=== PATIENT | female | born 1995 | race Caucasian/White ===

== ENCOUNTER → 2019-10-20 08:40 | Outpatient (BNVA) | payer OTHER, SELFPAY | PROVIDERS: Family Provider Internal Medicine; PCP Internal Medicine; Referring Provider Obstetrics & Gynecology; Visit Provider Obstetrics & Gynecology | DX: N92.6 Irregular menstruation, unspecified (principal) | CPT/HCPCS: 84702 ==

== ENCOUNTER → 2020-01-04 15:17 | Outpatient (BNVA) | payer OTHER, SELFPAY | PROVIDERS: Family Provider Internal Medicine; PCP Internal Medicine; Visit Provider Obstetrics & Gynecology | DX: N83.291 Other ovarian cyst, right side (principal); R10.2 Pelvic and perineal pain | CPT/HCPCS: 76830 ==

== ENCOUNTER → 2020-04-06 08:10 | Outpatient (BNVA) | payer OTHER, SELFPAY | PROVIDERS: Family Provider Internal Medicine; PCP Internal Medicine; Visit Provider Obstetrics & Gynecology | DX: R10.2 Pelvic and perineal pain (principal) | CPT/HCPCS: 76830 ==

== ENCOUNTER → 2020-04-12 08:31 | Outpatient (BNVA) | payer OTHER, SELFPAY | PROVIDERS: Family Provider Internal Medicine; PCP Internal Medicine; Visit Provider Obstetrics & Gynecology | DX: Z12.4 Encounter for screening for malignant neoplasm of cervix (principal) | CPT/HCPCS: 88175 ==

== ENCOUNTER → 2020-04-28 09:51 | Outpatient (BNVA) | payer OTHER, SELFPAY | PROVIDERS: Family Provider Internal Medicine; PCP Internal Medicine; Referring Provider Obstetrics & Gynecology; Visit Provider Internal Medicine | DX: Z11.59 Encounter for screening for other viral diseases (principal) | CPT/HCPCS: 87635 ==

== ENCOUNTER 2020-05-04 05:52 | Day surgery (SDC) | payer OTHER, SELFPAY ==
[2020-05-03 09:58] VITALS: BMI 34.4
[2020-05-03 10:20] LABS: OR HCG Qualitative Urine Negative (Negative)
[2020-05-03 10:29] LABS: Basophils % 0.4 %; Eosinophils # 0.1 10^3/uL (0.0-0.8); Eosinophils % 1.3 %; Hematocrit 39.5 % (37.0-47.0); Hemoglobin 12.6 g/dL (11.5-15.3); Lymphocytes # 2.3 10^3/uL (0.8-4.8); Lymphocytes % 27.7 %; Mean Corpuscular HGB Conc 31.9 g/dL (30.0-36.0); Mean Platelet Volume 11.3 fL (7.4-10.4); Monocytes # 0.6 10^3/uL (0.2-0.9); Monocytes % 7.7 %; Neutrophils # 5.14 10^3/uL (1.8-7.7); Neutrophils % 62.8 %; Nucleated Red Blood Cells % 0 %; Platelet Count 242 10^3/cmm (130-400); Red Blood Count 4.34 10^6/uL (4.1-5.3); Red Cell Distribution Width 12.5 % (12.1-15.1); White Blood Count 8.2 10^3/uL (4.0-10.0)
--- NOTE | 2020-05-03 10:44 | P.ANESASSM_ITS ---
Pre-Anesthetic Assessment Pre-Anesthetic Assessment: Height/Weight: Height 1.7 m Weight 99.79 kg Preop Diagnosis: Abdominal pain-likely endometriosis Proposed Procedure: Operation Date: 05/04/20 07:00 Proposed Procedures p Laparoscopic Ovarian Cystectomy poss oophorectomy [id number] N83.201(Right) - Fabby Medina MD s Lysis Of Adhesions(Not Applicable) - Fabby Medina MD Familial anesthetic complications: None Social: Social History: No alcohol and No tobacco Exam: Pre-Anes Outpt Exam: alert, oriented x 3, clear to auscultation b ilaterally and regular rate & rhythm Airway: Cervical ROM: WNL MP: 3 Dentition: Full Pulmonary: Pulmonary: None reported Neuropsych: Neuropsych: None reported Anesthetic Plan: ASA status: 1 Anesthesia: General Risk of > 500 ml blood loss (7ml/kg in children): No PFSH Anesthesia PFSH: Medical History (Updated 04/27/20 @ 09:08 by Fabby Medina MD) Anxiety Diagnosed in 2019 and is taking Zoloft to help with the symptoms. She thinks that this may be related to coronavirus more than anything else. She has since stopped the medicine and feels fine without it. She denies any depressive symptoms No pertinent past medical history Denies: Denies diabetes, asthma, hypertension, seizures, DVT/PE PCP: JODY Fung Surgical History No history of previous surgery Family History Mother Diabetes Hypertension Grandmother Ovarian cancer Maternal; diagnosed at age 90--breast cancer was the primary cancer Breast cancer Maternal; diagnosed at age 90 Denies family history of Colon cancer Heart disease Hyperlipidemia Uterine cancer Thyroid condition Stroke Social History Smoking and tobacco status: never smoked Alcohol intake: unknown Data Anesthesia CBC & Chem 7: 05/03/20 10:20 Other Labs: Laboratory Results - last 48 hr 05/03/20 05/03/20 10:19 10:20 WBC 8.2 RBC 4.34 Hgb 12.6 Hct 39.5 MCV 91.0 MCH 29.0 MCHC 31.9 RDW 12.5 Plt Count 242 MPV 11.3 H Neut % (Auto) 62.8 Lymph % (Auto) 27.7 [place] % (Auto) 7.7 Eos % (Auto) 1.3 Baso % (Auto) 0.4 Neut # (Auto) 5.14 Lymph # (Auto) 2.3 [place] # (Auto) 0.6 Eos # (Auto) 0.1 Baso # (Auto) 0.0 Nucleated RBC % (auto) 0 Nucleated RBCs # 0.0 Urine HCG, Qual Negative Cardiac Studies: No Data to Display
[2020-05-04] VITALS (13 sets, daily range): BP systolic 115–143; BP diastolic 68–90; PULSE 74–86; RESP 13–26; TEMP 36.4–37.4; O2SAT 94–100
[2020-05-04 06:14] LABS: OR HCG Qualitative Urine Negative (Negative)
[2020-05-04] MEDS: sodium chloride 0.9% 1,000 ML 30 ML IV (06:26)
[2020-05-04] MEDS: sodium chloride 0.9% 500 ML IV (06:26)
--- NOTE | 2020-05-04 06:53 | P.HPUD_ITS ---
Surgery/Procedure H&P Update DATE OF PROCEDURE: May 04, 2020 DATE H&P PERFORMED: 04/12/20 H&P UPDATE INFORMATION: I have reviewed H&P completed within last 30 days, I have examined patient prior to procedure, No changes to prior documentation and H&P is in [facility] [place] EMR on date indicated PREOP DIAGNOSIS: Abdominal pain-likely endometriosis PLANNED PROCEDURE: Operation Date: 05/04/20 07:00 Proposed Procedures p Laparoscopic Ovarian Cystectomy poss oophorectomy [id number] N83.201(Right) - Fabby Medina MD s Lysis Of Adhesions(Not Applicable) - Fabby Medina MD
--- NOTE | 2020-05-04 07:09 | P.ANESUD_ITS ---
Pre-Anesthetic Update Pre-Anesthetic Assessment: Date of Surgery/Procedure: 05/04/20 Preop Blanka gnosis: Abdominal pain-likely endometriosis Proposed Procedure: Operation Date: 05/04/20 07:00 Proposed Procedures p Laparoscopic Ovarian Cystectomy poss oophorectomy [id number] N83.201(Right) - Fabby Medina MD s Lysis Of Adhesions(Not Applicable) - Fabby Medina MD Any changes to Pre-Anesthetic Assessment?: No Last Intake: Intake Last Liquid Date 05/03/20 Last Liquid Time 18:30 Last Solid Date 05/03/20 Last Solid Time 18:00 Labs Last 48hrs: Laboratory Results - last 48 hr 05/03/20 05/03/20 05/03/20 10:19 10:20 10:20 WBC 8.2 RBC 4.34 Hgb 12.6 Hct 39.5 MCV 91.0 MCH 29.0 MCHC 31.9 RDW 12.5 Plt Count 242 MPV 11.3 H Neut % (Auto) 62.8 Lymph % (Auto) 27.7 [place] % (Auto) 7.7 Eos % (Auto) 1.3 Baso % (Auto) 0.4 Neut # (Auto) 5.14 Lymph # (Auto) 2.3 [place] # (Auto) 0.6 Eos # (Auto) 0.1 Baso # (Auto) 0.0 Nucleated RBC % (a uto) 0 Nucleated RBCs # 0.0 Urine HCG, Qual Negative Blood Type O Positive Rho(D) Type Positive Antibody Screen Negative 05/04/20 05:59 WBC RBC Hgb Hct MCV MCH MCHC RDW Plt Count MPV Neut % (Auto) Lymph % (Auto) [place] % (Auto) Eos % (Auto) Baso % (Auto) Neut # (Auto) Lymph # (Auto) [place] # (Auto) Eos # (Auto) Baso # (Auto) Nucleated RBC % (a uto) Nucleated RBCs # Urine HCG, Qual Negative Blood Type Rho(D) Type Antibody Screen Vitals: Temperature 98.6 F 05/04/20 06:04 Temperature Source Temporal Artery S can 05/04/20 06:04 Pulse Rate 80 05/04/20 06:04 Respiratory Rate 18 05/04/20 06:04 Blood Pressure 142/78 05/04/20 06:04 Blood Pressure Monica n 99 05/04/20 06:04 Pulse Oximetry 98 05/04/20 06:04 Oxygen Delivery Me thod 05/04/20 06:04 Exam: Pre-Anes Outpt Exam: alert, oriented x 3, clear to auscultation bilaterally and regular rate & rhythm Cardiac Studies: No Data to Display
[2020-05-04] MEDS: silver nitrate applicator 1 EACH TOPICAL (08:49)
--- NOTE | 2020-05-04 09:13 | SUR.PHASEI ---
0909 PATIENT TO PACU FROM OR. RR EVEN AND UNLABORED. SPO2 97% ON SIMPLE MASK AT 8L. 3 INCISIONS TO ABDOMEN, CDI.
--- NOTE | 2020-05-04 09:18 | SUR.PHASEI ---
0918 ORAL AIRWAY REMOVED AT THIS TIME. SPO2 100% ON SIMPLE MASK AT 8L.
--- NOTE | 2020-05-04 09:19 | PM.OP ---
Operative Report Date of procedure: May 04, 2020 OPERATIVE REPORT Date of surgery: 05/04/2020 Date of dictation: 05/04/2020 Preoperative diagnosis: Pelvic pain, right ovarian cyst, possible endometriosis Postoperative diagnosis/findings: 6-week size retroverted uterus, mobile, nontender, right adnexal mass, minimal prolapse. On laparoscopy, no injury at site of entry, normal appendix, endometriosis noted in the cul-de-sac with multiple lesions all along the uterosacral ligaments and posterior wall of the uterus. Left ovary appeared normal with no endometriosis noted in the left ovarian fossa. Right ovary was enlarged and contained an endometrioma about 5 cm which ruptured at time of manipulation, endometriosis noted in the right ovarian fossa. Biopsies done, ablation of endometriosis performed. Procedure done: Laparoscopic right ovarian cystectomy , peritoneal biopsy, fulguration of endometriosis, chromotubation Specimens removed/disosition of specimens: Peritoneal biopsy, portion of the right ovary and cyst wall, Surgeon: Dr. Fabby Avelar Hydrogeology Professor: Destiny Denise Anesthesia: General endotracheal tube anesthesia Estimated blood loss: Less than 25 ml Intravenous fluids: 900 mL of LR Urine output: 50 mL of clear urine at the end of procedure. Medications: As per anesthesia records Complications:none, patient was extubated and taken to the recovery room in a stable condition. PROCEDURE: After consents were obtained, she was taken to the operating room where she was placed under general endotracheal tube anesthesia without any difficulty. She was placed supine on the table in lithotomy position. Her legs were placed in stirrups and care was taken to avoid pressure points. Exam under anesthesia 8 weeks size retroverted uterus, right adnexal fullness and minimal prolapse. ZUMI uterine manipulator was placed without any difficulty after dilating the cervix and Wright catheter was also placed. All instruments removed in the vagina and the legs were lowered. Attention was turned towards the abdomen where half percent Marcaine with epinephrine was injected in to her umbilicus. A 10 mm skin incision was made and a 10 mm port was placed through the umbilicus using an open type technique. Once intra-abdominal entry was confirmed no adhesions were noted around the umbilicus and Matias trocar was stitched to the fascia. Gas was turned on and intra-abdominal opening pressure was 2. The abdomen is insufflated until the pressure was 13. Survey of the abdomen revealed no trauma at site of entry, and findings noted as above A 5 mm trocar was placed into the right and left lower quadrant under direct visualization after injecting Marcaine. Attention was turned towards the pelvis and findings noted as above. It was hard to see the right ovary as it was adherent into the ovarian fossa on the right pelvic sidewall and while trying to free up those adhesions the cyst ruptured releasing chocolate-like material consistent with an endometrioma. This was suctioned and irrigated well. The now ruptured ovarian cyst made dissection easier and using scissors the ovary was dissected off the sidewall without any difficulty. We then proceeded with the cystectomy and the cyst wall and abnormal part of the ovary was excised using the Vuoyant cautery device. Care was taken to remove all cyst wall and good hemostasis was achieved. Hemostasis was achieved with cautery. This excised portion of the ovary and cyst was removed and sent to pathology. Attention was then turned to the cul-de-sac where a biopsy was performed excising an area of endometriosis. Most of the endometriosis was noted on the uterosacral ligaments bilaterally with scarring and small cigarette burn areas. Jr-Masters windows were noted on the left side. Once a biopsy was done and sent to pathology separately the areas of visualized endometriosis were cauterized. No endometriosis were noted anteriorly or in the left ovarian fossa. Care was taken in cauterizing areas of endometriosis in the right ovarian fossa and minimal to no cautery was done here. Good hemostasis was noted. At this point chromotubation was done. Indigo carmine diluted with saline was placed in a 60 cc syringe and injected through the ZUMI uterine manipulator. Immediate bilateral spill of blue dye was noted from both ovaries. No adhesions or blockages identified. Once this was done Surgicel was placed over the ovary. Good hemostasis was noted at area of surgery with lowering pressure. All instruments were removed from the abdomen and the abdomen was desufflated. Trochars were removed with the blunt probe in place. The fascia on the umbilicus was closed with 0 Vicryl on a UR needle and good approximation was obtained. The skin incision on all 3 ports was closed with 4-0 Monocryl in a subcuticular fashion. Good reapproximation and hemostasis was noted. The incisions were dressed with Steri-Strips Telfa and Tegaderm. Wright catheter and ZUMI (manipulator was removed. Hemostasis was achieved of the cervix using silver nitrate. The patient was extubated and taken to recovery room in stable condition. FOLLOW UP: Follow-up in 2 weeks and 6 weeks with surgeon MEDICATION ON DISCHARGE: Colace 100 mg by mouth every 12 hours when necessary constipation, 30 tablets, no refills Ibuprofen 800 mg by mouth every 8 hours when necessary pain, 60 tablets, no refills. [place] 5/325 mg 1 tablet by mouth every 6 hours when necessary pain,30 tablets, no refills Continue other home medication DISPOSITION: Home in a stable condition Pre-op Diagnosis: Abdominal pain-likely endometriosis
[2020-05-04] MEDS: ondansetron 2 mg/ML SDV 2 mL 4 MG IVP ×2 (09:33→09:58)
[2020-05-04] MEDS: fentaNYL 50 mcg/mL INJ 2mL IVP (09:36)
--- NOTE | 2020-05-04 09:57 | SUR.PHASEI ---
0952 PATIENT TO OPS. PAIN 4/10, NAUSEA IMPROVED. 3 INCISIONS TO ABDOMEN, CDI. PATIENT C/O NAUSEA WHEN GETTING TO OPS. ZOFRAN GIVEN AND SCOPOLAMINE PATCH APPLIED.
[2020-05-04] MEDS: scopolamine 1.5 Patch 1 PATCH TRANSDERMA (09:59)
== END 2020-05-04 10:38 | disposition home or self-care (01) ==
PROVIDERS: Anesthesiology; Family Provider Internal Medicine; PCP Internal Medicine; Visit Provider Obstetrics & Gynecology
PROC: (CPT 58662; principal; 2020-05-04 07:00)
DX: N83.201 Unspecified ovarian cyst, right side (principal); N80.0 Endometriosis of uterus
CPT/HCPCS: 58100; 58350; 58662; 12345; 36415; 81025; 84703; 85025; 86850; 86900; 88305; J1100; J2405; J2704; J2710; J3010; J3490; J7030; J7040

== ENCOUNTER → 2020-08-30 00:01 | Outpatient (BNVA) | payer OTHER, SELFPAY | PROVIDERS: Family Provider Internal Medicine; PCP Internal Medicine; Visit Provider Obstetrics & Gynecology | DX: N97.9 Female infertility, unspecified (principal) | CPT/HCPCS: 83036; 83520; 84144; 84443 ==

== ENCOUNTER → 2020-09-28 09:05 | Outpatient (BNVA) | payer OTHER, SELFPAY | PROVIDERS: Family Provider Internal Medicine; PCP Internal Medicine; Visit Provider Obstetrics & Gynecology | DX: N80.9 Endometriosis, unspecified (principal) | CPT/HCPCS: 84144 ==

== ENCOUNTER → 2020-10-30 08:17 | Outpatient (BNVA) | payer OTHER, SELFPAY | PROVIDERS: Family Provider Internal Medicine; PCP Internal Medicine; Visit Provider Obstetrics & Gynecology | DX: N97.0 Female infertility associated with anovulation (principal) | CPT/HCPCS: 84144 ==

== ENCOUNTER → 2020-11-13 08:53 | Outpatient (BNVA) | payer OTHER, SELFPAY | PROVIDERS: Family Provider Internal Medicine; PCP Internal Medicine; Visit Provider Obstetrics & Gynecology | DX: Z32.01 Encounter for pregnancy test, result positive (principal) | CPT/HCPCS: 84702 ==

== ENCOUNTER → 2020-11-20 08:34 | Outpatient (BNVA) | payer OTHER, SELFPAY | PROVIDERS: Family Provider Internal Medicine; PCP Internal Medicine; Visit Provider Obstetrics & Gynecology | DX: Z34.90 Encounter for supervision of normal pregnancy, unspecified, unspecified trimester (principal) | CPT/HCPCS: 84702 ==

== ENCOUNTER → 2020-12-26 12:44 | Outpatient (BNVA) | payer OTHER, SELFPAY | PROVIDERS: Family Provider Internal Medicine; PCP Internal Medicine; Visit Provider Obstetrics & Gynecology | DX: Z34.81 Encounter for supervision of other normal pregnancy, first trimester (principal) | CPT/HCPCS: 82950; 84315 ==

== ENCOUNTER → 2021-01-08 11:11 | Outpatient (BNVA) | payer OTHER, SELFPAY | PROVIDERS: Family Provider Internal Medicine; PCP Internal Medicine; Visit Provider Obstetrics & Gynecology | DX: Z34.81 Encounter for supervision of other normal pregnancy, first trimester (principal) | CPT/HCPCS: 80307; 84315; 85027; 86592; 86762; 86803; 86850; 86900; 87086; 87340; 87491; 87591 ==

== ENCOUNTER 2021-03-28 10:31 | Emergency (ER) | payer OTHER, SELFPAY ==
[2021-03-28 10:44] VITALS: BP 118/76; PULSE 123; RESP 18; TEMP 37; O2SAT 96; BMI 36.0
--- NOTE | 2021-03-28 11:06 | XR_ITS ---
WS: [id number] Portable AP upright chest, 03/28/2021 Clinical Data: COVID/shield abd Comparison: None. Findings: Patchy bilateral pulmonary opacities especially in the upper lobes are consistent with diff use bilateral pneumonia. The heart is normal. No nodules, masses or effusions are seen. XR/XR chest 1V portable [id number] Impression: Bilateral patchy pulmonary opacities especially in the upper lobes consistent w ith pneumonia.
[2021-03-28] MEDS: sodium chloride 0.9% 500 ML 999 ML IV (11:27)
--- NOTE | 2021-03-28 11:36 | W.ED.COVID ---
HPI - COVID General: Chief Complaint: COVID symptoms Stated Complaint: cough, fever, SOB, Covid+ Time Seen by Provider: 03/28/21 10:55 Triage information: Has fever, cough or shortness of breath. Exposure to COVID + person last 14 days History of Present Illness: HPI Narrative: 26-year-old female presents emergency room with complaint of persistent cough. At times she coughs to the point of feeling she is going to vomit. She has difficulty in eating and drinking because of her chronic cough. She was diagnosed 11 days ago. She is 24 weeks she denies any vaginal bleeding or discharge. MD complaint: known COVID positive Prior testing date: 03/19/21 COVID 19 common symptoms: positive fever(s), chills, cough, non-productive cough, dyspnea, fatigue, body aches and nasal congestion; negative nausea, vomiting or diarrhea COVID 19 other sytmptoms: negative chest pain or requiring oxygen Onset (ago): day(s) (11) Severity: mild Pertinent comorbid conditions: Treatment prior to arrival: acetaminophen and ibuprofen COVID Results: Nasal/Oral Coronavirus 2019 PCR Negative 04/28/20 09:51 04/28/20 Review of Systems Const: Reports: fever(s), chills, body aches and fatigue ENMT: Reports: nasal congestion Card: Denies: chest pain, edema, dyspnea on exertion or orthopnea Resp: Reports: dyspnea and non-productive cough GI: Denies: abdominal pain, nausea, vomiting, diarrhea or constipation : Denies: flank pain, difficulty voiding, dysuria, urinary frequency or urinary urgency Skin/Breast: Denies: rash or pruritus PFS ED PFSH: Medical History Anxiety Diagnosed in 2019 and is taking Zoloft to help with the symptoms. She thinks that this may be related to coronavirus more than anything else. She has since stopped the medicine and feels fine without it. She denies any depressive symptoms Endometriosis Diagnosed in April 2020 with laparoscopy and endometrioma. No pertinent past medical history Denies: Denies diabetes, asthma, hypertension, seizures, DVT/PE PCP: JODY Fung Surgical History Status post laparoscopy 05/04/2020---laparoscopic right ovarian cystectomy, ablation of endometriosis and peritoneal biopsy for right ovarian cyst performed by Dr. Avelar at [facility] [place]. Pathology showed possible hemorrhagic cyst. Peritoneal biopsy confirmed endometriosis -Endometriosis is noted all along the uterosacral ligaments bilaterally and in the ovarian fossa on the right side. Chromotubation performed showed bilateral spill of dye. Family History Mother Diabetes Hypertension Grandmother Ovarian cancer Maternal; diagnosed at age 90--breast cancer was the primary cancer Breast cancer Maternal; diagnosed at age 90 Denies family history of Colon cancer Heart disease Hyperlipidemia Uterine cancer Thyroid condition Stroke Social History Smoking and tobacco status: never smoked Alcohol intake: unknown Physical Exam Const: COMMON NORMALS: no acute distress GENERAL APPEARANCE: cooperative and comfortable ORIENTATION/CONSCIOUSNESS: Yes awake, Yes oriented to person, Yes oriented to place and Yes oriented to time HENMT: COMMON NORMALS: normocephalic, atraumatic and hearing grossly normal bilaterally HEAD & SCALP: normocephalic and atraumatic Neck/C-Spine: COMMON NORMALS: no JVD Resp: COMMON NORMALS: normal respiratory effort, No retractions, No use of accessory muscles and clear to auscultation bilaterally AUSCULTATION: clear to auscultation bilaterally Cardio: COMMON NORMALS: no JVD, regular rate, regular rhythm and No murmurs present (Cardio) RATE: regular rate RHYTHM: regular rhythm GI: COMMON NORMALS: Soft to palpation and No hepatosplenomegaly present AUSCULTATION: Yes normoactive bowel sounds PALPATION: Yes Soft to palpation, No Tenderness to palpation present (GI), No Guarding due to palpation present (GI) and Yes No hepatosplenomegaly present Extremity: COMMON NORMALS: normal to inspection, capillary refill normal, no clubbing, cyanosis or edema, no calf tenderness and no pedal edema Neuro: SENSORIUM/ORIENTATION: Yes oriented to person, Yes oriented to place and Yes oriented to time Skin: COMMON NORMALS: no rashes or lesions noted GENERAL SKIN EXAM: no rashes or lesions noted Course Vital Signs: Vital signs: Vital Signs Temperature 98.6 F 03/28/21 10:44 Pulse Rate 123 H 03/28/21 10:44 Respiratory Rate 18 03/28/21 10:44 Blood Pressure 118/76 03/28/21 10:44 Pulse Oximetry 97 03/28/21 12:08 MDM - COVID MDM Narrative: Medical decision making narrative: Reviewed labs and x-ray findings the patient certainly did have Covid pneumonitis and still has some residual effect on her chest x-ray but there is no evidence of secondary bacterial infection do not recommend antibiotics this time she can use albuterol as needed she otherwise satting well no further interventions needed. Lab Data: Labs: Lab Results 03/28/21 03/28/21 03/28/21 Range/Units 11:30 11:30 11:30 WBC 5.5 (4.0-10.0) 10^3/ uL RBC 4.51 (4.1-5.3) 10^6/u L Hgb 13.0 (11.5-15.3) g/dL Hct 39.2 (37.0-47.0) % MCV 86.9 (81-99) fL MCH 28.8 (28.0-34.0) pg MCHC 33.2 (30.0-36.0) g/dL RDW 13.7 (12.1-15.1) % Plt Count 148 (130-400) 10^3/c mm MPV 11.3 H (7.4-10.4) fL Neut % (Auto) 80.0 % Lymph % (Auto) 13.1 % [place] % (Auto) 5.8 % Eos % (Auto) 0.0 % Baso % (Auto) 0.2 % Neut # (Auto) 4.38 (1.8-7.7) 10^3/u L Lymph # (Auto) 0.7 L (0.8-4.8) 10^3/u L [place] # (Auto) 0.3 (0.2-0.9) 10^3/u L Eos # (Auto) 0.0 (0.0-0.8) 10^3/u L Baso # (Auto) 0.0 (0.0-0.1) 10^3/u L Nucleated RBC % (a uto) 0 % Nucleated RBCs # 0.0 /100WBC D-Dimer 0.80 H (0-0.59) ug/mIFE U Sodium 138 (136-145) mmol/L Potassium 3.3 L (3.5-5.1) mmol/L Chloride 104 (98-107) mmol/L Carbon Dioxide 17 L (22-29) mmol/L Anion Gap 20.3 H (5-19) BUN 6 (6-20) mg/dL Creatinine 0.4 L (0.5-0.9) mg/dL GFR Calculation 192.9 H (90-130) mL/min Glucose 84 (65-115) mg/dL Calculated Osmolal ity 283 L (285-295) mOsm/k g Lactic Acid (0.5-2.2) mmol/L Calcium 8.1 L (8.5-10.5) mg/dL Total Bilirubin 1.7 H (0.15-1.2) mg/dL AST 28 (0-32) U/L ALT 33 (0-33) U/L Alkaline Phosphata se 156 H (35-105) IU/L C-Reactive Protein 81.2 H (0.0-4.9) mg/L Total Protein 6.3 L (6.6-8.7) g/dL Albumin 3.5 (3.5-5.2) g/dL Globulin 2.8 (1.3-4.6) g/dL 03/28/21 Range/Units 11:30 WBC (4.0-10.0) 10^3/ uL RBC (4.1-5.3) 10^6/u L Hgb (11.5-15.3) g/dL Hct (37.0-47.0) % MCV (81-99) fL MCH (28.0-34.0) pg MCHC (30.0-36.0) g/dL RDW (12.1-15.1) % Plt Count (130-400) 10^3/c mm MPV (7.4-10.4) fL Neut % (Auto) % Lymph % (Auto) % [place] % (Auto) % Eos % (Auto) % Baso % (Auto) % Neut # (Auto) (1.8-7.7) 10^3/u L Lymph # (Auto) (0.8-4.8) 10^3/u L [place] # (Auto) (0.2-0.9) 10^3/u L Eos # (Auto) (0.0-0.8) 10^3/u L Baso # (Auto) (0.0-0.1) 10^3/u L Nucleated RBC % (a uto) % Nucleated RBCs # /100WBC D-Dimer (0-0.59) ug/mIFE U Sodium (136-145) mmol/L Potassium (3.5-5.1) mmol/L Chloride (98-107) mmol/L Carbon Dioxide (22-29) mmol/L Anion Gap (5-19) BUN (6-20) mg/dL Creatinine (0.5-0.9) mg/dL GFR Calculation (90-130) mL/min Glucose (65-115) mg/dL Calculated Osmolal ity (285-295) mOsm/k g Lactic Acid 1.7 (0.5-2.2) mmol/L Calcium (8.5-10.5) mg/dL Total Bilirubin (0.15-1.2) mg/dL AST (0-32) U/L ALT (0-33) U/L Alkaline Phosphata se (35-105) IU/L C-Reactive Protein (0.0-4.9) mg/L Total Protein (6.6-8.7) g/dL Albumin (3.5-5.2) g/dL Globulin (1.3-4.6) g/dL COVID Results: Nasal/Oral Coronavirus 2019 PCR Negative 04/28/20 09:51 04/28/20 Discharge Plan Discharge Patient Disposition: Home Clinical Impression: COVID-19 Condition: Stable Prescriptions: New albuterol sulfate 90 mcg/actuation HFA aerosol inhaler 2 inh INHALATION Q4H PRN (Reason: shortness of breath or wheezing) Qty: 18 RF: 0 No Action Multivitamins 1 tab PO DAILY RF: 0 Discharge Orders: Discharge ED (Routine); Ordered 03/28/21 Ordered By: Jewel Grewal Discharge Diet: Usual diet Discharge Activity: Increase activity as tolerated Patient Instructions: Opioid Safety Coding Level of Care Code ED Economics Faculty Member for g Fwd Exam Comprehensive
[2021-03-28 11:37] LABS: Basophils % 0.2 %; Hematocrit 39.2 % (37.0-47.0); Lymphocytes # 0.7 10^3/uL (0.8-4.8); Lymphocytes % 13.1 %; Mean Corpuscular HGB Conc 33.2 g/dL (30.0-36.0); Mean Corpuscular Hemoglobin 28.8 pg (28.0-34.0); Mean Corpuscular Volume 86.9 fL (81-99); Mean Platelet Volume 11.3 fL (7.4-10.4); Monocytes # 0.3 10^3/uL (0.2-0.9); Monocytes % 5.8 %; Neutrophils # 4.38 10^3/uL (1.8-7.7); Nucleated Red Blood Cells % 0 %; Platelet Count 148 10^3/cmm (130-400); Red Blood Count 4.51 10^6/uL (4.1-5.3); Red Cell Distribution Width 13.7 % (12.1-15.1); White Blood Count 5.5 10^3/uL (4.0-10.0)
[2021-03-28 11:56] LABS: Alanine Aminotransferase 33 U/L (0-33); Albumin Level 3.5 g/dL (3.5-5.2); Alkaline Phosphatase 156 IU/L (35-105); Anion Gap 20.3 (5-19); Aspartate Amino Transferase 28 U/L (0-32); Blood Urea Nitrogen 6 mg/dL (6-20); C Reactive Protein 81.2 mg/L (0.0-4.9); Calcium 8.1 mg/dL (8.5-10.5); Carbon Dioxide 17 mmol/L (22-29); Chloride 104 mmol/L (98-107); Globulin 2.8 g/dL (1.3-4.6); Glomerular Filtration Rate 192.9 mL/min (90-130); Glucose 84 mg/dL (65-115); Osmolality Calculated 283 mOsm/kg (285-295); Potassium 3.3 mmol/L (3.5-5.1); Sodium 138 mmol/L (136-145); Total Bilirubin 1.7 mg/dL (0.15-1.2); Total Protein 6.3 g/dL (6.6-8.7)
[2021-03-28 11:57] LABS: Lactic Sepsis W/Reflex 1.7 mmol/L (0.5-2.2)
[2021-03-28 12:08] VITALS: O2SAT 97
== END 2021-03-28 12:19 | disposition home or self-care (01) ==
PROVIDERS: Emergency Provider Family Medicine
DX: O98.512 Other viral diseases complicating pregnancy, second trimester (principal); U07.1 COVID-19; Z3A.24 24 weeks gestation of pregnancy
CPT/HCPCS: 71045; 80053; 83605; 85025; 85378; 86140; 99282; J7040

== ENCOUNTER → 2021-04-24 10:14 | Outpatient (BNVA) | payer OTHER, SELFPAY | PROVIDERS: Visit Provider Obstetrics & Gynecology | DX: Z34.90 Encounter for supervision of normal pregnancy, unspecified, unspecified trimester (principal) | CPT/HCPCS: 82950; 84315; 85027 ==

== ENCOUNTER → 2021-04-30 08:05 | Outpatient (BNVA) | payer OTHER, SELFPAY | PROVIDERS: Visit Provider Obstetrics & Gynecology | DX: Z34.82 Encounter for supervision of other normal pregnancy, second trimester (principal) | CPT/HCPCS: 82951; 82952 ==

== ENCOUNTER → 2021-06-25 12:03 | Outpatient (BNVA) | payer OTHER, SELFPAY | PROVIDERS: Visit Provider Obstetrics & Gynecology | DX: Z34.82 Encounter for supervision of other normal pregnancy, second trimester (principal) | CPT/HCPCS: 84315; 87081 ==

== ENCOUNTER → 2021-07-10 15:12 | Outpatient (BNVA) | payer OTHER, SELFPAY | PROVIDERS: Visit Provider Obstetrics & Gynecology | DX: Z34.82 Encounter for supervision of other normal pregnancy, second trimester (principal); Z20.822 Contact with and (suspected) exposure to COVID-19 | CPT/HCPCS: 87635 ==

== ENCOUNTER 2021-07-12 21:00 | Outpatient (CLI) | payer OTHER, SELFPAY ==
[2021-07-12 21:47] VITALS: BP 136/87; PULSE 71
[2021-07-12 22:02] VITALS: BP 118/75; PULSE 74
[2021-07-12 22:17] VITALS: BP 114/75; PULSE 74
[2021-07-12 22:18] VITALS: RESP 16
[2021-07-13 00:16] LABS: Basophils % 0.1 %; Eosinophils % 0.4 %; Hematocrit 36.2 % (37.0-47.0); Hemoglobin 11.8 g/dL (11.5-15.3); Lymphocytes # 2.4 10^3/uL (0.8-4.8); Lymphocytes % 22.7 %; Mean Corpuscular HGB Conc 32.6 g/dL (30.0-36.0); Mean Corpuscular Hemoglobin 28.7 pg (28.0-34.0); Mean Corpuscular Volume 88.1 fl (81-99); Mean Platelet Volume 12.7 fL (7.4-10.4); Monocytes # 0.5 10^3/uL (0.2-0.9); Monocytes % 4.8 %; Neutrophils # 7.53 10^3/uL (1.8-7.7); Neutrophils % 71.8 %; Nucleated Red Blood Cells % 0 %; Platelet Count 220 10^3/cmm (130-400); Red Blood Count 4.11 10^6/uL (4.1-5.3); Red Cell Distribution Width 13.6 % (12.1-15.1); White Blood Count 10.5 10^3/uL (4.0-10.0)
[2021-07-13 02:28] VITALS: BP 123/77; PULSE 74
[2021-07-13 02:48] VITALS: BP 113/72; PULSE 78
[2021-07-13 07:07] VITALS: BP 133/93; PULSE 68
[2021-07-13 07:23] VITALS: BP 123/80; PULSE 80
[2021-07-13 07:38] VITALS: BP 121/77; PULSE 82
--- NOTE | 2021-07-13 09:10 | PM.PN ---
Subjective Subjective: Interval history: Short stay summary: Ms. Milan is a 26-year-old 3 para 1-0-1-1 at 39 weeks and 0 days who presented to labor and delivery on 07/12/2021 for scheduled elective induction of labor. She was admitted to labor and delivery however at that time multiple other labors including twins at 35 weeks presented and I was asked to hold off on her induction in the hopes that patients with delivery. She was watched overnight with NSTs every 4 hours. Lab work was done and within normal limits. By 8 AM no patient had and Labor and Delivery was 4 and had a discussion with patient about being discharged and returning later that evening as this was an elective induction and vital signs and NSTs were reactive. Discussed other option of continuing to be observed waiting till patient's delivered and patient preferred to go home and return. IV was discontinued and patient was allowed to go home with plan to return at 7 PM for induction of labor for term . Vitals/I&O/Wt Last Vital Signs Pulse 82 07/13/21 07:38 Resp 16 07/12/21 22:18 BP 121/77 07/13/21 07:38 Data : 07/12/21 23:55 Attestations Medical Necessity Statement*: Patient is being discharged Coding Level of Care Code Acute Air Conditioning Technician for Angelia [place]
== END 2021-07-13 09:47 | disposition home or self-care (01) ==
LOC: OPOB 21:01 → OBGYN 21:02
PROVIDERS: Visit Provider Obstetrics & Gynecology
DX: Z53.8 Procedure and treatment not carried out for other reasons (principal)
CPT/HCPCS: 36415; 59025; 85025

== ENCOUNTER 2021-07-13 19:09 | Inpatient (IN) | payer OTHER, SELFPAY ==
[2021-07-13] VITALS (26 sets, daily range): BP systolic 104–135; BP diastolic 57–98; PULSE 67–104; RESP 16; TEMP 36–36.7; O2SAT 98; BMI 36.8
[2021-07-13] MEDS: lactated ringers 1,000 ML 999 ML IV (20:05)
[2021-07-13] MEDS: ampicillin 2,000 MG in sodium chloride 0.9% (plus) 50 ML 100 MG IV (20:06)
[2021-07-13] MEDS: oxytocin 30 UNIT/500 ML BAG IV (22:10)
[2021-07-13] MEDS: ampicillin 1,000 MG in sodium chloride 0.9% (plus) 50 ML 100 MG IV (23:34)
[2021-07-13] MEDS: morphine 4 mg/mL SDV 1 mL 8 MG IM (23:59)
[2021-07-14] VITALS (37 sets, daily range): BP systolic 104–151; BP diastolic 57–98; PULSE 67–114; RESP 16–18; TEMP 35.8–36.3
[2021-07-14] MEDS: promethazine 25 mg/mL SDV 1 mL IM
[2021-07-14] MEDS: dextrose 5%-lactated ringers 1,000 ML 125 ML IV (01:56)
[2021-07-14] MEDS: fentaNYL 50 mcg/mL INJ 2mL IVP (02:48)
--- NOTE | 2021-07-14 02:55 | PM.OPHPUD ---
Labor & Delivery H&P Update Date of Procedure: July 14, 2021 Date H&P Performed: 07/09/21 H&P update information: I have reviewed H&P completed within last 30 days, I have examined patient prior to procedure, Changes to prior documentation as noted here and [place] is [place] [facility] [place] date indicated Changes to previous documentation: Cervix is 7 cm Admission Diagnosis: Preop diagnosis: Primary indication for procedure: and delivery
[2021-07-14] MEDS: lidocaine 2% INJ 20 mL INJECTION (03:32)
--- NOTE | 2021-07-14 03:55 | P.PCNOB_ITS ---
Delivery Note: Date of delivery: July 14, 2021 - PRE-DELIVERY DIAGNOSIS: 26-year-old 3 para 1-0-1-1 at 39 weeks and 1 day gestation Elective induction of labor COVID in at 22 weeks Rubella nonimmune-for MMR Obesity conceived on Clomid GBS positive POST-DELIVERY DIAGNOSIS: Vaginal delivery on 07/14/2021 Rubella nonimmune-for MMR PROCEDURE: Vaginal delivery on 07/14/2021 ANESTHESIA: Local anesthesia with 2% lidocaine DELIVERING PHYSICIAN: Fabby Avelar FACLANDON PRE-DELIVERY COURSE: Ms. Milan is a 26-year-old 3 para 1-0-1-1 at 39 weeks and 1 day who presented to labor and delivery on 07/13/2021 for scheduled induction of labor. She had been seen earlier in the day when her induction had to be put off and upon discharge her cervix was 3 to 4 cm 75% and -2 station cephalic. When she presented at 7 PM on 07/13/2021 her cervix was 5 to 6 cm, 75% and -2 station and she was having occasional contractions. She was admitted and antibiotics started GBS positive status. She received a total of 2 doses of antibiotics. She was started on Pitocin titrated to a maximum of 13 mIU. With this she started to have regular contractions. I was called at 1:57 AM stating that she was anterior lip with intact membranes and was starting to get uncomfortable. When I arrived and examined the patient she was noted to be 7 cm 80% and -2 station. Artificial rupture of membranes was performed at 2:17 AM on 07/14/2021 with clear fluids and patient tolerated this well. Shortly after rupture of membranes she started to have variables and patient was repositioned multiple times. Overall tracing was category 2 with moderate variability accelerations and recurrent variables. The variables did improve with position change. She made rapid cervical dilation and was fully dilated at 3:18 AM and +2 station ready to push. DELIVERY NOTE: She was set up in lithotomy position and was pushing effectively. She was noted to be +3 station and continued pushing well. The head delivered in NICK position, tight nuchal cord x2 was present and unable to be reduced. The shoulders and rest of the body followed with her next push and delivered through the cord without any difficulty. The baby's mouth and nose were suctioned and the baby was placed on the mother's belly. Once cord pulsations stopped the cord was clamped and cut. The placenta delivered spontaneously intact with membranes and was discarded. The fundus was noted to be firm and well contracted. The vagina and cervix were inspected and no cervical or sulcal lacerations were noted. The perineum was intact except for a first-degree vaginal laceration which was repaired with 3-0 Vicryl in a continuous interlocking fashion. Good hemostasis and reapproximation was obtained. Baby boy, Saul born at 3:22 AM on 07/14/2021 with 9/9, weighing 7 pounds 2 ounces, 3240 g, 20-1/2 inches long. Placenta was delivered spontaneously intact with membranes at 3:29 AM. Cotyledons were intact , centrally inserted umbilical cord with 3 vessels noted. Estimated blood loss 250 mL. Complications-none, both baby and mother were left to recover in a stable condition. This documentation was created by [employer] industrial specialist software (known for inherent industrial specialist error). Every effort was made to assure accuracy of industrial specialist. Any obvious errors or omissions should be clarified with the author of the document. History History History 3 Term 2 Miscarriages/Ectopic 1 0 Living Children 2 Other History: 2 Para 2011; x 2; SAB x 1 1----> 06/27/2017--> full term vaginal delivery at 38 weeks, baby girlMONTANA weighing 7 lbs[address] Allan at [facility]. care with Dr. Avelar. Second-degree perineal tear. No complications. Patient received MMR for rubella nonimmune status on 06/28/2017. 2---->04/2019-->6 week SAB. No D & C required. 3---> 07/14/2021---> full-term vaginal delivery at 39 weeks, baby boy Saul weighing 7 pounds [address] Avelar at [facility]. First-degree vaginal tear. Elective induction of labor-no epidural, 5-hour induction Coding Level of Care Code Acute Candy Waffle Assembler for Chg Ludy
[2021-07-14] MEDS: ibuprofen 800 mg tablet PO ×3 (10:31→21:29)
[2021-07-14] MEDS: docusate sodium 100 mg Capsule PO (10:31)
[2021-07-14] MEDS: prenatal vitamin Capsule 1 CAP PO (10:31)
[2021-07-14 18:24] LABS: Hematocrit 35.7 % (37.0-47.0); Hemoglobin 11.6 g/dL (11.5-15.3); Mean Corpuscular HGB Conc 32.5 g/dL (30.0-36.0); Mean Corpuscular Hemoglobin 28.7 pg (28.0-34.0); Mean Corpuscular Volume 88.4 fl (81-99); Mean Platelet Volume 12.7 fL (7.4-10.4); Platelet Count 202 10^3/cmm (130-400); Red Blood Count 4.04 10^6/uL (4.1-5.3); Red Cell Distribution Width 13.5 % (12.1-15.1)
[2021-07-15 05:37] VITALS: RESP 16
[2021-07-15 06:03] VITALS: BP 138/85; PULSE 92; TEMP 36.1
[2021-07-15] MEDS: ibuprofen 800 mg tablet PO (08:26)
[2021-07-15] MEDS: prenatal vitamin Capsule 1 CAP PO (08:26)
[2021-07-15] MEDS: docusate sodium 100 mg Capsule PO (08:26)
--- NOTE | 2021-07-15 10:32 | P.DS_ITS ---
Discharge Providers [employer]AT D[employer]EL [employer]OR MECHANIC Date of Admission: 07/13/21 19:10 Date of Discharge: 07/15/21 Attending Provider at Admission: Fabby Medina MD Attending Provider at Discharge: Fabby Medina MD PRE-DELIVERY DIAGNOSIS: 26-year-old 3 para 1-0-1-1 at 39 weeks and 1 day gestation Elective induction of labor COVID in at 22 weeks Rubella nonimmune-for MMR Obesity conceived on Clomid GBS positive POST-DELIVERY DIAGNOSIS: Vaginal delivery on 07/14/2021 Rubella nonimmune-for MMR PROCEDURE: Vaginal delivery on 07/14/2021 ANESTHESIA: Local anesthesia with 2% lidocaine DELIVERING PHYSICIAN: Fabby Avelar FACOG PRE-DELIVERY COURSE: Ms. Milan is a 26-year-old 3 para 1-0-1-1 at 39 weeks and 1 day who presented to labor and delivery on 07/13/2021 for scheduled induction of labor. She had been seen earlier in the day when her induction had to be put off and upon discharge her cervix was 3 to 4 cm 75% and -2 station cephalic. When she presented at 7 PM on 07/13/2021 her cervix was 5 to 6 cm, 75% and -2 station and she was having occasional contractions. She was admitted and antibiotics started GBS positive status. She received a total of 2 doses of antibiotics. She was started on Pitocin titrated to a maximum of 13 mIU. With this she started to have regular contractions. I was called at 1:57 AM stating that she was anterior lip with intact membranes and was starting to get uncomfortable. When I arrived and examined the patient she was noted to be 7 cm 80% and -2 station. Artificial rupture of membranes was performed at 2:17 AM on 07/14/2021 with clear fluids and patient tolerated this well. Shortly after rupture of membranes she started to have variables and patient was repositioned multiple times. Overall tracing was category 2 with moderate variability accelerations and recurrent variables. The variables did improve with position change. She made rapid cervical dilation and was fully dilated at 3:18 AM and +2 station ready to push. DELIVERY NOTE: She was set up in lithotomy position and was pushing effectively. She was noted to be +3 station and continued pushing well. The head delivered in NICK position, tight nuchal cord x2 was present and unable to be reduced. The shoulders and rest of the body followed with her next push and delivered through the cord without any difficulty. The baby's mouth and nose were suctioned and the baby was placed on the mother's belly. Once cord pulsations stopped the cord was clamped and cut. The placenta delivered spontaneously intact with membranes and was discarded. The fundus was noted to be firm and well contracted. The vagina and cervix were inspected and no cervical or sulcal lacerations were noted. The perineum was intact except for a first-degree vaginal laceration which was repaired with 3-0 Vicryl in a continuous interlocking fashion. Good hemostasis and reapproximation was obtained. Baby boy, Saul born at 3:22 AM on 07/14/2021 with 9/9, weighing 7 pounds 2 ounces, 3240 g, 20-1/2 inches long. Placenta was delivered spontaneously intact with membranes at 3:29 AM. Cotyledons were intact , centrally inserted umbilical cord with 3 vessels noted. Estimated blood loss 250 mL. Complications-none, both baby and mother were left to recover in a stable condition. HOSPITAL COURSE: She underwent an uncomplicated vaginal delivery on 07/14/2021. She did well on day 0 and was ambulating well, tolerating regular diet, voiding freely, passing flatus. She was breast-feeding without difficulty and bonding well with her son.. Pain was well-controlled with by mouth pain medication. She denied nausea, vomiting, fever, chills, shortness of breath, leg pain. She had moderate vaginal bleeding. On day # 1 she continued to do well with stable vital signs and stable hemoglobin at 11.6. She was discharged home on day 1 in a stable condition, as she desired early discharge. Warning signs for endometritis, mastitis, DVT/PE were reviewed with her. Post delivery activity restrictions were also reviewed with her at all her questions were answered to her satisfaction. Plans on using pills for contraception which will be started at her visit in 6 weeks. She was given MMR on 07/15/2021 prior to discharge. EXAM AT DISCHARGE: Gen.: No acute distress Heart: S1-S2 heard, regular rate and rhythm Lungs: Clear to auscultation bilaterally Abdomen: Soft, fundus firm below umbilicus, Legs: No calf tenderness, trace bilateral pitting pedal edema. CONDITION AT DISCHARGE: Stable This documentation was created by [employer] foreign service officer software (known for inherent foreign service officer error). Every effort was made to assure accuracy of foreign service officer. Any obvious errors or omissions should be clarified with the author of the document. Reason for Visit Reason for Visit: Induction Information Peripartum Data: Infant Delivery Method: Vaginal History History History 3 Term 2 Miscarriages/Ectopic 1 0 Living Children 2 Discharge Data Data Completed and Pending: Labs from last 24 hours 07/14/21 17:40 WBC 11.0 H RBC 4.04 L Hgb 11.6 Hct 35.7 L MCV 88.4 MCH 28.7 MCHC 32.5 RDW 13.5 Plt Count 202 MPV 12.7 H Vitals: Last Vital Signs Temp 97.0 F L 07/15/21 06:03 Pulse 92 07/15/21 06:03 Resp 16 07/15/21 05:37 BP 138/85 07/15/21 06:03 Pulse Ox 98 07/13/21 19:35 Discharge Plan Discharge Patient Disposition: Home Condition: Stable Prescriptions: New ibuprofen 800 mg tablet 800 mg PO Q8H Qty: 30 RF: 0 docusate sodium 100 mg Capsule 100 mg PO BID PRN (Reason: constipation) Qty: 30 RF: 0 Continued Multivitamins 1 tab PO DAILY RF: 0 albuterol sulfate 90 mcg/actuation HFA aerosol inhaler 2 inh INHALATION Q4H PRN (Reason: shortness of breath or wheezing) Qty: 18 RF: 0 Discharge Orders: Discharge Order (Routine); Ordered 07/15/21 Ordered By: Fabby Medina Referrals: Fabby Medina MD [Physician] - Discharge Diet: Regular Discharge Activity: Limit activity as instructed Patient Instructions: Depression (DC), Expression, Collection and Storage of Breast Milk (DC), Bleeding (DC), Preeclampsia and Eclampsia After Delivery (GEN), OB Discharge Report, OB Food/Drug Interaction Guide, Opioid Safety, OB Home Care, OB Vaginal Deliveries - [facility] Activity Restrictions/Additional Instructions: 6-week with Dr. Avelar, 6 weeks pelvic rest 6 weeks no heavy lifting Discharge Attestations [employer] D[employer]OR MECHANIC Time Spent in Discharge Care*: greater than 30 min Coding Level of Care Code Acute Information Technology Project Manager for Chg Fwd
[2021-07-15 10:58] VITALS: BP 134/82; PULSE 120; TEMP 36.2
[2021-07-15] MEDS: measles,mumps,rubella pf Vial (w/diluent) 0.5 ML SUBCUT (11:27)
[2021-07-15 12:00] VITALS: BP 134/82; PULSE 87; RESP 17; TEMP 36.2; O2SAT 97
== END 2021-07-15 11:48 | disposition home or self-care (01) | DRG 807 ==
LOC: OBGYN 19:24
PROVIDERS: Admitting Provider Obstetrics & Gynecology; Visit Provider Obstetrics & Gynecology
DX: O99.824 Streptococcus B carrier state complicating childbirth (principal); Z37.0 Single live birth; O69.81X0 Labor and delivery complicated by cord around neck, without compression, not applicable or unspecified; O99.214 Obesity complicating childbirth; E66.9 Obesity, unspecified; O71.4 Obstetric high vaginal laceration alone; Z3A.39 39 weeks gestation of pregnancy; Z23 Encounter for immunization; Z86.16 Personal history of COVID-19
CPT/HCPCS: 36415; 59025; 59409; 85027; 90707; 96372; 96374; 99211; G0378; J0290; J2270; J2550; J3010

== ENCOUNTER → 2021-08-31 15:55 | Outpatient (BNVA) | payer OTHER, SELFPAY | PROVIDERS: Visit Provider Obstetrics & Gynecology | DX: Z30.9 Encounter for contraceptive management, unspecified (principal) | CPT/HCPCS: 81025 ==

== ENCOUNTER 2021-12-20 16:01 | Outpatient (CLI) | payer OTHER, SELFPAY ==
--- NOTE | 2021-12-20 16:07 | XRR_ITS ---
PROCEDURE INFORMATION: Exam: XR Right Hip Exam date and time: 12/20/2021 4:08 PM Age: 26 years old Clinical indication: Hip pain; Right hip; Additional info: RT hip pain TECHNIQUE: Imaging protocol: XR Right hip. Views: 1 view hip with pelvis when performed. COMPARISON: US OB BPP w [facility] 06/12/2021 12:27 PM FINDINGS: Bones/joints: Unremarkable. No acute fracture. Soft tissues: Unremarkable. XR/XR hip RT 2-3V wo/w pel* [id number] IMPRESSION: No acute findings.
== END 2021-12-20 16:02 | disposition home or self-care (01) ==
LOC: RAD 16:04
PROVIDERS: Visit Provider Nurse Practitioner Family
DX: M25.551 Pain in right hip (principal)
CPT/HCPCS: 73502